=== PATIENT | male | born 1980 | race Caucasian/White ===

== ENCOUNTER → 2020-09-02 14:16 | Outpatient (BNVA) | payer OTHER, SELFPAY | PROVIDERS: PCP Internal Medicine; Visit Provider Internal Medicine | DX: Z76.89 Persons encountering health services in other specified circumstances (principal) ==

== ENCOUNTER 2020-09-02 14:24 | Emergency (ER) | payer OTHER, SELFPAY ==
--- NOTE | 2020-09-02 14:31 | XR_ITS ---
EXAMINATION: XR ANKLE, LEFT CLINICAL INFORMATION: Trauma, pain COMPARISON: None TECHNIQUE: AP, lateral, and mortise views of the left ankle. FINDINGS: There is mild lateral soft tissue swelling. The malleoli appear intact and the ankle mortise is symmetric. No visible ankle capsular effusion. The talar dome appears normal. The retrocalcaneal recess is preserved. There is a tiny plantar calcaneal spur. XR/XR ankle LT min 3V IMPRESSION: Mild lateral soft tissue swelling. No visible fracture or dislocation.
[2020-09-02 14:32] VITALS: BP 134/74; PULSE 80; RESP 16; TEMP 36.7; O2SAT 99; BMI 65.1
--- NOTE | 2020-09-02 14:42 | ED_ITS ---
HPI - Extremity Injury (Lower) General Chief Complaint: Extremity Injury, Lower <ANGELY Lyn - Last Filed: 09/02/20 15:51> Stated Complaint: LEFT ANKLE INJ WORK RELATED <ANGELY Lyn - Last Filed: 09/02/20 15:51> Time Seen by Provider: 09/02/20 14:30 <ANGELY Lyn - Last Filed: 09/02/20 15:51> Source: patient <ANGELY Lyn - Last Filed: 09/02/20 15:51> Mode of arrival: ambulatory <ANGELY Lyn - Last Filed: 09/02/20 15:51> Limitations: no limitations <ANGELY Lyn - Last Filed: 09/02/20 15:51> History of Present Illness HPI Narrative: 40 y/o male presenting with left ankle pain after an injury that occurred at work. 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 He was unable to bear weight after the injury. He denies knee or hip pain. He denies other injuries. He denies numbness or tingling. <ANGELY Lyn - Last Filed: 09/02/20 15:51> MD complaint: ankle injury <ANGELY Lyn - Last Filed: 09/02/20 15:51> Injury: Left: ankle <ANGELY Lyn - Last Filed: 09/02/20 15:51> Type of Injury: eversion <ANGELY Lyn - Last Filed: 09/02/20 15:51> Place: work <ANGELY Lyn - Last Filed: 09/02/20 15:51> Severity: moderate <ANGELY Lyn - Last Filed: 09/02/20 15:51> Severity scale (1-10): 8 <ANGELY Lyn - Last Filed: 09/02/20 15:51> Relieving factors: cold therapy, immobilization and rest <ANGELY Lyn Last Filed: 09/02/20 15:51> Exacerbating factors: weight bearing, movement and palpation <ANGELY Lyn - Last Filed: 09/02/20 15:51> Context: fall <ANGELY Lyn Last Filed: 09/02/20 15:51> Associated symptoms: snap/pop sensation and swelling <ANGELY Lyn Last Filed: 09/02/20 15:51> Other symptoms: none <ANGELY Lyn Last Filed: 09/02/20 15:51> Treatments prior to arrival: cold therapy <ANGELY Lyn Last Filed: 09/02/20 15:51> Related Data Home Medications: Previous Rx's Medication Instructions Recorded ibuprofen 600 mg PO Q8H PRN #20 tab 09/02/20 <ANGELY Lyn Last Filed: 09/02/20 15:51> Allergies/Adverse Reactions: Allergies Allergy/AdvReac Type Severity Reaction Status Date / Time No Known Allergies Allergy Verified 09/02/20 14:31 <ANGELY Lyn Last Filed: 09/02/20 15:51> Review of Systems Review of Systems: Constitutional: No Fever, No Chills Musculoskeletal: + joint pain, No Myalgias Skin: No Skin Lesions, No rash Neuro: No Dizziness, No Headache Heme/Lymph: No Bruising, No Lymphadenopathy <ANGELY Lyn Last Filed: 09/02/20 15:51> [facility] Past Medical History Medical History: Medical History (Updated 09/03/20 @ 00:00 by Background Daemyfn) No known health problems <ANGELY Lyn Last Filed: 09/02/20 15:51> Social History Social History: Social History Advance Directives: No Advance Directives Information Provided: Yes <ANGELY Lyn Last Filed: 09/02/20 15:51> Physical Exam Vital Signs: Vital Signs: Last Vital Signs Temp 98.0 F 09/02/20 14:32 Pulse 80 09/02/20 14:32 Resp 16 09/02/20 14:32 BP 134/74 09/02/20 14:32 Pulse Ox 99 09/02/20 14:32 Body Mass Index 65.1 Appearance: Alert. Oriented X3. No acute distress. HEENT: normal inspection Respiratory: No respiratory distress. Skin: Skin warm and dry. Normal skin color. Normal skin turgor. No rashes. Extremities: left ankle with lateral swelling, no deformity or ecchymosis. tenderness below lateral malleolus. Limited plantar flexion and dorsiflexion due to pain. Neuro: Oriented X 3. No motor deficit. No sensory deficit. <ANGELY Lyn - Last Filed: 09/02/20 15:51> Vital Signs: Last Vital Signs Temp 98.0 F 09/02/20 14:32 Pulse 80 09/02/20 14:32 Resp 16 09/02/20 14:32 BP 134/74 09/02/20 14:32 Pulse Ox 99 09/02/20 14:32 Body Mass Index 65.1 <Canelo Khan MD - Last Filed: 09/23/20 08:51> Course Course Course Narrative: 40 yo male presenting with left ankle pain after eversion injury at work. XR did not show any evidence of fracture. Placed in KANDIS wrap, ankle stirrup splint and given crutches. Counseled on management of ankle sprains, referred to [facility] for follow up. <ANGELY Lyn - Last Filed: 09/02/20 15:51> I have reviewed the chart <Canelo Khan MD - Last Filed: 09/23/20 08:51> MDM - Extremity Injury (Lower) Differential Diagnosis Differential diagnosis: Likely ankle sprain and strain and ankle fracture <ANGELY Lyn - Last Filed: 09/02/20 15:51> Critical Care Time Critical Care Time Critical Care Time: No <ANGELY Lyn - Last Filed: 09/02/20 15:51> Discharge Plan Discharge Clinical Impression: Ankle sprain and strain <ANGELY Lyn - Last Filed: 09/02/20 15:51> Patient Disposition: Home, Self-Care <ANGELY Lyn - Last Filed: 09/02/20 15:51> Instructions: Ankle Sprain (ED) <ANGELY Lyn - Last Filed: 09/02/20 15:51> Additional Instructions: Your x-ray today did not show any evidence of fracture. You may bear weight as tolerated. Take Motrin and/or Tylenol as needed for discomfort. Use ice several times per day and elevate your ankle when possible. Follow up with your doctor as needed. <ANGELY Lyn - Last Filed: 09/02/20 15:51> Prescriptions: New ibuprofen 600 mg tablet 600 mg PO Q8H PRN (Reason: pain) Qty: 20 RF: 0 <ANGELY Lyn - Last Filed: 09/02/20 15:51> Referrals: [facility] [Provider Group] - 2 days <ANGELY Lyn - Last Filed: 09/02/20 15:51> Stand Alone Forms: Work/School Release <ANGELY Lyn - Last Filed: 09/02/20 15:51> Interventions: ED Discharge Assessment Last Done: 09/02/20 15:55 <ANGELY Lyn - Last Filed: 09/02/20 15:51> Discharge Date/Time: 09/02/20 15:55 <ANGELY Lyn - Last Filed: 09/02/20 15:51>
== END 2020-09-02 15:55 | disposition home or self-care (01) ==
PROVIDERS: Emergency Provider Emergency Medicine; PCP Internal Medicine
DX: S93.402A Sprain of unspecified ligament of left ankle, initial encounter (principal); M25.572 Pain in left ankle and joints of left foot; X50.1XXA Overexertion from prolonged static or awkward postures, initial encounter; Y93.01 Activity, walking, marching and hiking; Y92.9 Unspecified place or not applicable; Y99.0 Civilian activity done for income or pay
CPT/HCPCS: 73610; 99283

== ENCOUNTER 2021-09-11 13:38 | Outpatient (REF) | payer BC, OTHER, SELFPAY | END 2021-09-11 13:39 | disposition home or self-care (01) | LOC: HO.HMGCLDS 13:38 | PROVIDERS: Visit Provider Internal Medicine | DX: Z20.822 Contact with and (suspected) exposure to COVID-19 (principal) | CPT/HCPCS: C9803; U0003; U0005 ==